=== PATIENT | male | born 1965 | race Caucasian/White ===

== ENCOUNTER 2017-12-30 00:29 | Emergency (ER) | payer SELFPAY ==
[~2017-12-30] VITALS: Ht 180.3 cm; Wt 78.0 kg
[2017-12-30 00:31] VITALS: BP 134/67; PULSE 116; RESP 20; TEMP 99; O2SAT 95
[2017-12-30] MEDS ORDERED: TETANUS/DIPHTHERIA TOXOID ADULT 0.5 ML VIAL IM ONE (00:45)
--- NOTE | 2017-12-30 00:57 | PD ---
HPI Chief Complaint: Injury Time Seen by Provider: 00:37 Travel History International Travel<30 days: No Contact w/Intl Traveler<30days: No Traveled to known affect area: No History of Present Illness HPI Patient is a 52-year-old male presenting to emerge department evaluation of lacerations to his wrists. [place] when [place] slipped cutting his wrist. Patient reports 3 out of 10 pain , he states it sore. He is uncertain when his last tetanus vaccine was updated. Symptom onset was sudden, symptoms are mild in nature. Pain is constant. No other injuries reported. He denies any numbness or weakness in his extremities. [facility] Past Medical History Medical History: Denies Significant Hx Social History Alcohol Use: Yes Tobacco Use: Yes Allergies-Medications (Allergen,Severity, Reaction): Coded Allergies: No Known Allergies (Unverified , 12/30/17) Review of Systems Except as stated in HPI: all other systems reviewed are Neg Skin: Positive Other (Lacerations) Physical Exam Narrative GENERAL: Well-developed, well-nourished, alert male. Presenting in no acute distress. SKIN: Warm and dry. 2 cm superficial laceration to the left inner wrist, base of wound is well visualized, no tendon involvement. 0.5 cm superficial laceration to the right inner wrist., Base of wound is well visualized. No tendon injury noted. HEAD: Normocephalic. EYES: No scleral icterus. No injection or drainage. NECK: Supple, trachea midline. No JVD or lymphadenopathy. CARDIOVASCULAR: Regular rate and rhythm without murmurs, gallops, or rubs. RESPIRATORY: Breath sounds equal bilaterally. No accessory muscle use. GASTROINTESTINAL: Abdomen soft, non-tender, nondistended. MUSCULOSKELETAL: No cyanosis, or edema. 5 out of 5 muscle strength in bilateral upper extremities, sensation is intact. BACK: Nontender without obvious deformity. No CVA tenderness. Data Data Last Documented VS Vital Signs Date Time Temp Pulse Resp B/P (MAP) Pulse Ox O2 Delivery O2 Flow Rate FiO2 12/30/17 00:31 99.0 116 20 134/67 (89) 95 Orders Orders Tetanus/Diphtheria Tox Adult (Tetanus/Di (12/30/17 00:45) MDM Medical Decision Making Medical Screen Exam Complete: Yes Emergency Medical Condition: Yes Interpretation(s) Vital Signs Date Time Temp Pulse Resp B/P (MAP) Pulse Ox O2 Delivery O2 Flow Rate FiO2 12/30/17 00:31 99.0 116 20 134/67 (89) 95 Differential Diagnosis Laceration versus abrasion versus tendon injury versus other Narrative Course Patient is a 52-year-old male presenting to the emergency department for evaluation of bilateral wrist lacerations. Please see procedure report for laceration repair. Patient is neurologically intact. Lacerations were superficial. Patient was advised to keep stitches clean and dry, they will need to be removed in 7 days. He can return to emergency department follow-up with his primary doctor. He verbalized understanding of these instructions. Patient stable for discharge. Procedures Procedure Narrative LACERATION LOCATION: Left wrist LENGTH: 2 cm NUMBER OF STITCHES/ANAHI: 3 stitches REPAIR: The area of the laceration was prepped with Betadine and sterilely draped. The laceration was infiltrated with 1% lidocaine with epi. The wound was copiously irrigated and explored without evidence of foreign body, tendon injury or neurovascular injury. The wound was closed using 4-0 Ethilon. This was a 1 layer repair. A sterile dressing was applied. The patient was advised to keep the dressing clean and dry. Patient tolerated the procedure well. Diagnosis Primary Impression: Laceration of wrist Qualified Codes: S61.519A - Laceration without foreign body of unspecified wrist, initial encounter Referrals: Primary Care Physician 1 week Patient Instructions: Acute Wound Care (GEN), Care For Your Stitches (ED), General Instructions, Laceration (ED) Additional Instructions: Stitches will need to be removed in 1 week, you can follow-up with your primary doctor or return to emergency department. Keep stitches clean and dry, do not submerge in water, [place]. Keep stitches covered with nonocclusive dressing if there is a chance of wound getting dirty Return to emergency department immediately for any new or worsening some Med/Other Pt SpecificInfo: No Change to Meds Disposition: 01 DISCHARGE HOME Condition: Stable Silvia Mcmahon December 30, 2017 00:57
== END 2017-12-30 01:21 | disposition home or self-care (01) ==
LOC: NEPD 00:29
DX: S61.512A Laceration without foreign body of left wrist, initial encounter (principal); S61.511A Laceration without foreign body of right wrist, initial encounter; W26.8XXA Contact with other sharp object(s), not elsewhere classified, initial encounter; Z72.0 Tobacco use; Z23 Encounter for immunization
CPT/HCPCS: 12001; 90471; 90714